=== PATIENT | male | born 1965 | race Caucasian/White ===

== ENCOUNTER 2016-09-27 10:56 | Observation (INO) | payer BC, OTHER ==
[2016-09-27] MEDS ORDERED: SODIUM CHLORIDE 0.9% 500 ML IV STA (11:13)
[2016-09-27] MEDS ORDERED: SODIUM CHLORIDE 0.9% 1,000 ML IV STA (11:13)
[2016-09-27] MEDS ORDERED: NITROGLYCERIN OINT 1 INCH/GM PACKET TOPICAL STA (11:13)
[2016-09-27] MEDS ORDERED: ASPIRIN 81 MG CHEW PO STA (11:14)
--- NOTE | 2016-09-27 11:20 | ED ---
Chest Pain HPI - General Chief Complaint: Chest Pain Stated Complaint: CHEST PAIN, CARDIAC HX Time Seen by Provider: 09/27/16 11:00 Source: patient, family, RN notes reviewed, old records reviewed Mode of arrival: wheelchair Limitations: no limitations - History of Present Illness Initial Comments: This is a 50-year-old male with a history of heart disease who states he was working on his garage prior to admission when he started developing some chest pain with shortness of breath about half hour prior to admission. He states pain was about 4/10 in severity he did take nitroglycerin and got better but then started coming back to bed. He is here for evaluation. He has no cough phlegm production fevers chills or sweats. He states the pain was sharp and midsternal. He denies any history of blood clots. No recent colds flu symptoms. No heavy lifting. MD Complaint: chest pain, other - Related Data Home Medications Medication Instructions Recorded Confirmed ALPRAZolam 0.25 mg PO BID PRN 08/25/14 09/27/16 Aspirin 162 mg PO HS 08/25/14 09/27/16 [id number] 2 tab PO HS 08/25/14 09/27/16 [Excedrin] Atorvastatin [Lipitor] 80 mg PO HS 08/25/14 09/27/16 Clopidogrel Bisulfate [Clopidogrel] 75 mg PO HS 08/25/14 09/27/16 Metoprolol Tartrate [Lopressor] 25 mg PO HS 08/25/14 09/27/16 Naproxen [Naprosyn] 500 mg PO BID PRN 08/25/14 09/27/16 Omeprazole 20 mg PO HS 08/25/14 09/27/16 SUMAtriptan SUCCINATE [Imitrex] 100 mg PO HS PRN 01/19/16 09/27/16 Nitroglycerin Sl Tabs [Nitrostat] 0.4 mg SUBLINGUAL Q5M PRN 09/27/16 09/27/16 Allergies Allergy/AdvReac Type Severity Reaction Status Date / Time No Known Allergies Allergy Verified 09/27/16 11:02 Review of Systems ROS Statement: Those systems with pertinent positive or pertinent negative responses have been documented in the HPI. ROS Other: All systems not noted in ROS Statement are negative. EKG Findings - EKG Results: EKG: interpreted by LEEANN, sinus rhythm (Sinus rhythm with a rate is 81. Interval 148 QRS duration 86 daily since QTC of 362/[address]-T wave changes. This is compared with an EKG dated 01/30/16 which shows a very similar configuration.) Past Medical History Past Medical History: GERD/Reflux, Myocardial Infarction ([place]) Additional Past Medical History / Comment(s): Restless leg syndrome, migraines. [place] x3. Last Myocardial Infarction Date:: 2013 History of Any Multi-Drug Resistant Organisms: None Reported Past Surgical History: Appendectomy, Back Surgery, Heart Catheterization With Stent, Hernia Repair Additional Past Surgical History / Comment(s): Surgery for ruptured disc lower back. Has 3 heart stents. Past Anesthesia/Blood Transfusion Reactions: Previous Problems w/ Anesthesia Additional Past Anesthesia/Blood Transfusion Reaction / Comment(s): Has some anxiety, thai. with spinal anesthesia. Date of Last Stent Placement:: 2013 Past Psychological History: Anxiety Smoking Status: Current every day smoker Past Alcohol Use History: None Reported Additional Past Alcohol Use History / Comment(s): Smokes 2 PPD x 28 yrs. Past Drug Use History: None Reported - Past Family History Mother Family Medical History: Cancer Additional Family Medical History / Comment(s): Leukemia Father Family Medical History: Cancer Additional Family Medical History / Comment(s): Skin General Exam - General Exam Comments Initial Comments: This is a well-developed well-nourished awake alert oriented 3 male Limitations: no limitations General appearance: alert, in no apparent distress Head exam: Present: atraumatic, normocephalic, normal inspection Eye exam: Present: normal appearance, PERRL, EOMI. Absent: scleral icterus, conjunctival injection, periorbital swelling ENT exam: Present: normal exam, mucous membranes moist Neck exam: Present: normal inspection. Absent: tenderness, meningismus, lymphadenopathy Respiratory exam: Present: normal lung sounds bilaterally. Absent: respiratory distress, wheezes, rales, rhonchi, stridor Cardiovascular Exam: Present: regular rate, normal rhythm, normal heart sounds. Absent: systolic murmur, diastolic murmur, rubs, gallop, clicks GI/Abdominal exam: Present: soft, normal bowel sounds. Absent: distended, tenderness, guarding, rebound, rigid Extremities exam: Present: normal inspection, full ROM, normal capillary refill. Absent: tenderness, pedal edema, joint swelling, calf tenderness Back exam: Present: normal inspection Neurological exam: Present: alert, oriented X3, CN II-XII intact Psychiatric exam: Present: normal affect, normal mood Skin exam: Present: warm, dry, intact, normal color. Absent: rash Course Vital Signs 09/27/16 09/27/16 09/27/16 10:57 11:18 12:17 Temperature 97.2 F L Pulse Rate 87 74 69 Respiratory 18 16 15 Rate Blood Pressure 125/56 106/60 95/53 O2 Sat by Pulse 95 98 96 Oximetry 09/27/16 13:47 Temperature 97.1 F L Pulse Rate 62 Respiratory 16 Rate Blood Pressure 98/52 O2 Sat by Pulse 97 Oximetry - Reevaluation(s) Reevaluation #1: 09/27/16 11:19 I did review the cath report from 08/26/14 as well as a CAT scan of the chest which was performed 01/31/16 Reevaluation #2: 09/27/16 13:45 Reevaluation the patient reveals no further chest pain. Chest Pain MDM - MDM Imaging study shows no acute findings. Patient is pain-free at this time he will be admitted for evaluation for chest pain. Critical Care Time Critical Care Time: Yes Critical Care Time: 31 minutes which includes initial presentation with history physical lab work x- rays and evaluation of the same. Multiple re-evaluations to evaluate responsive therapy. Discussion with the patient and his family. Discussion with the admitting physician. Evaluation of old charting. Documentation the above and admission orders. Disposition Clinical Impression: Unstable angina pectoris, Chest pain Disposition: ADMITTED IP TO THIS [facility] Condition: Stable
[2016-09-27 11:28] LABS: Basophils # (A) 0.1 k/uL (0-0.2); Basophils % (A) 0 %; CHCM 33.8; Eosinophils # (A) 0.2 k/uL (0-0.7); Eosinophils % (A) 1 %; HCT 40.1 % (39.0-53.0); HDW 2.64; HGB 13.2 gm/dL (13.0-17.5); Luc # (Auto) 0.12; Luc % (Auto) 1; Lymphocytes # (A) 2.9 k/uL (1.0-4.8); Lymphocytes % (A) 18 %; MCH 30.5 pg (25.0-35.0); MCV 92.3 fL (80.0-100.0); Mean Platelet Volume 7.3; Monocytes # (A) 0.5 k/uL (0-1.0); Monocytes % (A) 3 %; Neutrophils # (A) 12.7 k/uL (1.3-7.7); Neutrophils % (A) 77 %; RBC 4.34 m/uL (4.30-5.90); RDW 14.1 % (11.5-15.5); WBC 16.5 k/uL (3.8-10.6)
[2016-09-27 11:38] LABS: ALT 39 U/L (21-72); AST 24 U/L (17-59); Alkaline Phosphatase 103 U/L (38-126); Anion Gap 9 mmol/L; Blood Urea Nitrogen 22 mg/dL (9-20); Calcium 9.3 mg/dL (8.4-10.2); Carbon Dioxide 20 mmol/L (22-30); Chloride 110 mmol/L (98-107); Glucose 100 mg/dL (74-99); Non-African American GFR(MDRD) >60 (>60 ml/min/1.73 sqM); Potassium 4.3 mmol/L (3.5-5.1); Sodium 139 mmol/L (137-145); Total Bilirubin 0.2 mg/dL (0.2-1.3); Total Protein 6.7 g/dL (6.3-8.2)
[2016-09-27 11:57] LABS: Creatine Kinase 218 U/L (55-170); Partial Thromboplastin Time 25.4 sec (22.0-30.0); Prothrombin Time 10.4 sec (9.0-12.0)
[2016-09-27 12:10] LABS: Creatine Kinase MB 1.1 ng/mL (0.0-2.4); Troponin I <0.012 ng/mL (0.000-0.034)
--- NOTE | 2016-09-27 12:23 | XR ---
EXAMINATION TYPE: XR chest 2V DATE OF EXAM: 09/27/2016 12:14 PM COMPARISON: Prior chest x-ray December HISTORY: Chest pain TECHNIQUE: Frontal and lateral views of the chest are obtained. FINDINGS: There is no focal air space opacity, pleural effusion, or pneumothorax seen. The cardiac silhouette size is within normal limits. There are overlying cardiac leads. The osseous structures are intact. IMPRESSION: No acute cardiopulmonary process.
[2016-09-27] MEDS ORDERED: NITROGLYCERIN SL TABS 0.4 MG TAB SUBLINGUAL PRN (13:56)
[2016-09-27] MEDS ORDERED: SODIUM CHLORIDE 0.9% 1,000 ML IV SCH (14:00)
[2016-09-27] MEDS ORDERED: SUMAtriptan SUCCINATE 50 MG TAB PO PRN (14:15)
[2016-09-27] MEDS ORDERED: ACETAMINOPHEN TAB 325 MG TAB PO PRN (14:40)
[2016-09-27 15:26] VITALS: RESP 18
[2016-09-27] MEDS: NICOTINE 14MG/24HR PATCH TRANSDERM SCH (16:27)
[2016-09-27] MEDS: NITROGLYCERIN OINT 1 INCH/GM PACKET TOPICAL SCH (18:00)
[2016-09-27 18:30] LABS: Creatine Kinase 177 U/L (55-170)
[2016-09-27 18:43] LABS: Creatine Kinase MB 0.9 ng/mL (0.0-2.4); Troponin I <0.012 ng/mL (0.000-0.034)
[2016-09-27] MEDS ORDERED: CALCIUM CARBONATE 500 MG CHEWABLE PO PRN (20:10)
[2016-09-27] MEDS ORDERED: CITALOPRAM HYDROBROMIDE 20 MG TAB PO SCH ×2 (21:00)
[2016-09-27] MEDS ORDERED: ATORVASTATIN 80 MG TAB PO SCH (21:00)
[2016-09-27] MEDS ORDERED: PRAMIPEXOLE 0.25 MG TAB PO SCH (21:00)
[2016-09-27] MEDS ORDERED: CLOPIDOGREL 75 MG TAB PO SCH (21:00)
[2016-09-27] MEDS ORDERED: NAPROXEN 250 MG TAB PO PRN (21:00)
[2016-09-27] MEDS ORDERED: ASPIRIN-ACET-CAFF 250-250-65MG 1 EACH TAB PO SCH (21:00)
[2016-09-27] MEDS ORDERED: METOPROLOL TARTRATE 25 MG TAB PO SCH (21:00)
[2016-09-27] MEDS ORDERED: LISINOPRIL 20 MG TAB PO SCH (21:00)
--- NOTE | 2016-09-27 22:21 | HP ---
DATE OF ADMISSION: 09/27/2016 This 50 -year-old gentleman with history of coronary artery disease with previous cardiac catheterization and stent placement three times in the past, ( ) retrosternal chest pain started today, ( ) lasting for half an hour. Retrosternal area, sharp in nature, not radiating, 4/10 in severity, relieved with nitroglycerine. After half an hour, started having chest pain again. Came to the ER. Relieved again with nitroglycerine. The patient was complaining of some shortness of breath. Denied any lightheadedness. Denied any acute diaphoresis. Chest pain is nonpleuritic in nature, not associated with food and the patient ( ) chest pains are similar to the chest pain he had when he had myocardial infarction. The patient follows with Dr. Chairez as an outpatient. Patient continues to smoke and continues to smoke 2 packs per day. Works as a haul truck driver. Patient did not have cough, fever or chills. Patient chest x-ray did not show any significant pneumonic process and patient chest pain is nonpleuritic in nature. Nonexertional in nature. REVIEW OF SYSTEMS: CONSTITUTIONAL: No fever, no malaise, no fatigue. HEENT: No recent visual problems or hearing problems. Denied any sore throat. CARDIOVASCULAR: As described in history of present illness. PULMONARY: No shortness of breath, no cough, no hemoptysis. GASTROINTESTINAL: No diarrhea, no nausea, no vomiting, no abdominal pain. Normoactive bowel sounds. NEUROLOGICAL: No headaches, no weakness, no numbness. HEMATOLOGICAL: Denies any bleeding or petechiae. GENITOURINARY: Denies any burning micturition, frequency, or urgency. MUSCULOSKELETAL/RHEUMATOLOGICAL: Denies any joint pain, swelling, or any muscle pain. ENDOCRINE: Denies any polyuria or polydipsia. The rest of the 14 point review of systems is negative. HOME MEDICATIONS INCLUDE: 1. Alprazolam. 2. Aspirin. 3. Fioricet. 4. Atorvastatin. 5. Plavix. 6. Metoprolol. 7. Naproxen. 8. Omeprazole. 9. Sumitriptan. 10. Nitroglycerine sublingual. ALLERGIES: No known drug allergies. PAST MEDICAL HISTORY: Significant for gastroesophageal reflux disease, myocardial infarction in the past, migraine in the past. Restless leg syndrome, appendectomy, back surgery, cardiac catheterization and stent placement three times in the past. Patient continues to smoke 2 packs per day. Denied any alcohol abuse or any drug abuse. Family history: Mother had ( ). Father had skin cancer. PHYSICAL EXAMINATION: VITAL SIGNS: Temperature 97.2, pulse of 87, respiratory rate of 18, blood pressure is 95/53 because of the Nitro patch he has, saturating at 96% on room air. GENERAL: The patient is alert and oriented x3, not in any acute distress. Well developed, well nourished. HEENT: Pupils are round and equally reacting to light. EOMI. No scleral icterus. No conjunctival pallor. Normocephalic, atraumatic. No pharyngeal erythema. No thyromegaly. CARDIOVASCULAR: S1 and S2 present. No murmurs, rubs, or gallops. PULMONARY: Chest is clear to auscultation, no wheezing or crackles. ABDOMEN: Soft, nontender, nondistended, normoactive bowel sounds. No palpable organomegaly. MUSCULOSKELETAL: No joint swelling or deformity. EXTREMITIES: No cyanosis, clubbing, or pedal edema. NEUROLOGICAL: Gross neurological examination did not reveal any focal deficits. SKIN: No rashes. LABORATORY DATA: CBC, CMP, essentially within normal limits. EKG did not show any acute ST-T wave changes. Patient has been compliant with his medications. Chest x-ray essentially within normal limits. ASSESSMENT AND PLAN: 1. Chest pain, appears to be atypical in nature. Patient needs to be ruled out acute coronary artery syndrome. Because of the ( ) chest pain and ( ) factors including continued smoking. Patient may actually need a stress test, the decision will be left up to cardiology. Cardiology will evaluate the patient tomorrow morning. I will repeat two more sets of troponins and EKGs. 2. Restless leg syndrome. 3. History of coronary artery disease in the past. 4. Gastroesophageal reflux disease. 5. Migraines. For the above mentioned chronic medical problems, I will go ahead and continue his home medications, ( ) regarding nicotine cessation is provided.
[2016-09-27 23:43] LABS: Creatine Kinase 156 U/L (55-170)
[2016-09-27] MEDS ORDERED: MAG HYDROX/AL HYDROX/SIMETH 30 ML CUP PO PRN (23:45)
[2016-09-27] MEDS ORDERED: METOCLOPRAMIDE 5 MG/ML 2 ML VIAL IVP PRN (23:46)
[2016-09-27 23:56] LABS: Creatine Kinase MB 0.8 ng/mL (0.0-2.4); Troponin I <0.012 ng/mL (0.000-0.034)
[2016-09-28] MEDS: ALPRAZolam 0.25 MG TAB PO PRN ×2 (00:42→14:44)
[2016-09-28] MEDS: NITROGLYCERIN OINT 1 INCH/GM PACKET TOPICAL SCH ×3 (01:41→12:17)
[2016-09-28 04:06] LABS: Cholesterol 196 mg/dL (<200); HDL Cholesterol 32 mg/dL (40-60); Triglycerides 355 mg/dL (<150)
[2016-09-28 07:51] VITALS: PULSE 54; TEMP 97.6
--- NOTE | 2016-09-28 08:36 | P.CRDCN ---
History of Present Illness Consult date: 09/28/16 Chief complaint: Chest pain History of present illness: This is a pleasant 50-year-old gentleman with a past medical history significant for CAD and prior stenting of the proximal LAD and first diagonal branch as well as hypertension and dyslipidemia and significant history of smoking presented to the emergency room complaining of chest discomfort. He was in his usual state of health yesterday when he was sitting home and started experiencing sharp chest discomfort with radiation to the neck. No associated symptoms of shortness of breath, dizziness or lightheadedness, nausea or vomiting or sweating. The EKG showed sinus mechanism with nonspecific changes in the inferior leads. The cardiac enzymes came in to be unremarkable. I recommended proceeding with a coronary angiogram in view of the concerning symptoms and mildly abnormal EKG. The patient would like to go home and have a stress test done as an outpatient. I recommended getting the patient up and around and based on his symptoms will decide what the next step will be. Past Medical History Past Medical History: Coronary Artery Disease (CAD), Chest Pain / Angina, GERD/ Reflux, Hyperlipidemia, Myocardial Infarction ([place]), Pneumonia, Vascular Disorder Additional Past Medical History / Comment(s): Restless leg syndrome, migraines, PAD, [place] x2, back pain, peptic ulcer dx, nephrolithiasis, bronchitis, sinus problems. Last Myocardial Infarction Date:: 2013 History of Any Multi-Drug Resistant Organisms: None Reported Past Surgical History: Appendectomy, Back Surgery, Cholecystectomy, Heart Catheterization With Stent, Hernia Repair Additional Past Surgical History / Comment(s): Surgery for ruptured disc lower back. Has 3 heart stents. Past Anesthesia/Blood Transfusion Reactions: Previous Problems w/ Anesthesia Additional Past Anesthesia/Blood Transfusion Reaction / Comment(s): Has some anxiety, thai. with spinal anesthesia. Date of Last Stent Placement:: 2013 Past Psychological History: Anxiety Additional Psychological History / Comment(s): Pt resides with his spouse and 3 adult children. He is independent. He drives. He is a flatbed truck driver. Smoking Status: Current every day smoker Past Alcohol Use History: Occasional Additional Past Alcohol Use History / Comment(s): Smokes 2 PPD. Started smoking in 1987. Past Drug Use History: None Reported - Past Family History Mother Family Medical History: Cancer Additional Family Medical History / Comment(s): Mother in her 60's from leukemia Father Family Medical History: Cancer, COPD Additional Family Medical History / Comment(s): Skin cancer. Father at the age of 73 yrs from burn injuries. Medications and Allergies Home Medications Medication Instructions Recorded Confirmed Type ALPRAZolam 0.25 mg PO BID PRN 08/25/14 09/27/16 History Aspirin 162 mg PO HS 08/25/14 09/27/16 History [id number] 2 tab PO HS 08/25/14 09/27/16 History [Excedrin] Atorvastatin [Lipitor] 80 mg PO HS 08/25/14 09/27/16 History Clopidogrel Bisulfate [Clopidogrel] 75 mg PO HS 08/25/14 09/27/16 History Metoprolol Tartrate [Lopressor] 25 mg PO HS 08/25/14 09/27/16 History Naproxen [Naprosyn] 500 mg PO BID PRN 08/25/14 09/27/16 History Omeprazole 20 mg PO HS 08/25/14 09/27/16 History SUMAtriptan SUCCINATE [Imitrex] 100 mg PO HS PRN 01/19/16 09/27/16 History Citalopram Hydrobromide [CeleXA] 40 mg PO HS 09/27/16 09/27/16 History Lisinopril [Zestril] 20 mg PO HS 09/27/16 09/27/16 History Nitroglycerin Sl Tabs [Nitrostat] 0.4 mg SUBLINGUAL Q5M PRN 09/27/16 09/27/16 History Pramipexole [Mirapex] 0.25 mg PO HS 09/27/16 09/27/16 History Allergies Allergy/AdvReac Type Severity Reaction Status Date / Time No Known Allergies Allergy Verified 09/27/16 11:02 Physical Exam Vitals: Vital Signs Temp Pulse Pulse Resp BP BP Pulse Ox 09/28/16 08:00 54 L 18 09/28/16 07:55 96 09/28/16 07:49 97.6 F 54 L 18 97/55 96 09/28/16 04:00 97.9 F 51 L 18 90/59 95 09/27/16 23:47 18 09/27/16 23:46 61 18 106/64 95 09/27/16 20:00 18 09/27/16 19:52 97.9 F 68 18 111/55 96 09/27/16 18:23 18 09/27/16 15:24 93.5 F L 69 18 107/64 96 09/27/16 14:50 18 09/27/16 14:36 97.2 F L 65 16 100/56 97 Intake and Output 09/27/16 09/28/16 09/28/16 22:59 06:59 14:59 Intake Total 600 Balance 600 Intake: Oral 600 Other: Voiding Method Toilet Toilet Toilet # Voids 1 1 Weight 93.5 kg - Constitutional General appearance: no acute distress - Respiratory Respiratory: bilateral: CTA - Cardiovascular Rhythm: regular Heart sounds: normal: S1, S2 Results 09/27/16 11:10 09/27/16 11:10 Cardiac Enzymes 09/27/16 09/27/16 Range/Units 17:19 22:57 CK-MB (CK-2) 0.9 0.8 (0.0-2.4) ng/mL Troponin I <0.012 <0.012 (0.000-0.034) ng/mL Current Medications Generic Name Dose Route Start Last Admin Trade Name Freq PRN Reason Stop Dose Admin Acetaminophen 650 mg 09/27/16 14:40 Tylenol Tab PO Q6HR PRN Fever and/ or Pain Acetaminophen/Aspirin/Caffeine 2 each 09/27/16 21:00 09/27/16 17:41 Excedrin PO 2 each HS IKE Administration Al Hydroxide/Mg Hydroxide 30 ml 09/27/16 23:45 09/28/16 00:13 Maalox PO 30 ml Q4HR PRN Administration GI Upset Alprazolam 0.25 mg 09/27/16 13:57 09/28/16 00:42 Xanax PO 0.25 mg BID PRN Administration Anxiety Aspirin 325 mg 09/28/16 09:00 Aspirin PO DAILY IKE Atorvastatin Calcium 80 mg 09/27/16 21:00 09/27/16 21:04 Lipitor PO 80 mg HS IKE Administration Calcium Carbonate/Glycine 1,000 mg 09/27/16 20:10 09/27/16 21:06 Tums PO 1,000 mg QID PRN Administration Heartburn Citalopram Hydrobromide 40 mg 09/27/16 21:00 09/27/16 21:05 Celexa PO 40 mg HS IKE Administration Clopidogrel Bisulfate 75 mg 09/27/16 21:00 09/27/16 21:05 Plavix PO 75 mg HS IKE Administration Sodium Chloride 1,000 mls @ 20 mls/hr 09/27/16 14:00 09/27/16 16:28 Saline 0.9% IV Not Given .Q24H IKE Lisinopril 20 mg 09/27/16 21:00 09/27/16 21:04 Zestril PO 20 mg HS IKE Administration Metoclopramide HCl 5 mg 09/27/16 23:46 09/28/16 00:13 Reglan IVP 5 mg Q6HR PRN Administration Nausea And Vomiting Metoprolol Tartrate 25 mg 09/27/16 21:00 09/27/16 21:05 Lopressor PO 25 mg HS IKE Administration Naproxen 500 mg 09/27/16 21:00 09/28/16 00:41 Naprosyn PO 500 mg BID PRN Administration Pain Nicotine 1 patch 09/27/16 16:00 09/27/16 16:27 Habitrol 14mg/24hr Patch TRANSDERM 1 patch DAILY [facility] Administration Nitroglycerin 1 inch 09/27/16 18:00 09/28/16 05:28 Nitro-Bid Oint TOPICAL Not Given Q6HR [facility] Nitroglycerin 0.4 mg 09/27/16 13:56 Nitrostat SUBLINGUAL Q5M PRN Chest Pain Pantoprazole Sodium 40 mg 09/28/16 21:00 Protonix PO HS IKE Pramipexole Dihydrochloride 0.25 mg 09/27/16 21:00 09/27/16 21:04 Mirapex PO 0.25 mg HS IKE Administration Sumatriptan Succinate 100 mg 09/27/16 14:15 09/27/16 21:05 Imitrex PO 100 mg HS PRN Administration Migraine Headache Intake and Output 09/27/16 09/28/16 09/28/16 22:59 06:59 14:59 Intake Total 600 Balance 600 Intake: Oral 600 Other: Voiding Method Toilet Toilet Toilet # Voids 1 1 Weight 93.5 kg Assessment and Plan Plan: Assessment #1 when episode of chest discomfort #2 known CAD with prior angioplasty and stenting #3 multiple comorbid conditions Plan #1 I recommended proceeding with a coronary angiogram but the patient does not want to #2 I will ambulate the patient and assess the patient again.
[2016-09-28] MEDS ORDERED: ASPIRIN 325 MG TAB PO SCH (09:00)
[2016-09-28] MEDS: NICOTINE 14MG/24HR PATCH TRANSDERM SCH (09:38)
[2016-09-28 12:16] VITALS: BP 106/64
[2016-09-28] MEDS ORDERED: PANTOPRAZOLE 40 MG TABLET PO SCH (21:00)
--- NOTE | 2016-09-29 14:55 | DS ---
DATE OF ADMISSION: 09/27/2016 DATE OF DISCHARGE: 09/28/2016 Patient with coronary artery disease, admitted, came in with chest pain. Patient will need at least a stress test or cardiac catheterization. Patient declined cardiac cath and wanted to get an outpatient stress test. Patient is recommended to be discharged home to come back for outpatient stress test as per Cardiology. Patient was seen and examined on the day of discharge. Please refer to my dictation from yesterday for further details of admission diagnosis and rest of the diagnoses. DISCHARGE DIET: Cardiac. Activity as tolerated. Follow with Dr. Akil Tariq in 3 to 7 days; follow up with Dr. Chairez on scan 10/03/2016.
== END 2016-09-28 15:10 | disposition home or self-care (01) ==
LOC: EC 10:56 → 3OBS 13:58
PROVIDERS: ADMIT Internal Medicine; ATTEND Internal Medicine
DX: R07.89 Other chest pain (principal); G25.81 Restless legs syndrome; I10 Essential (primary) hypertension; E78.5 Hyperlipidemia, unspecified; I25.10 Atherosclerotic heart disease of native coronary artery without angina pectoris; K21.9 Gastro-esophageal reflux disease without esophagitis; G43.909 Migraine, unspecified, not intractable, without status migrainosus; F41.9 Anxiety disorder, unspecified; I25.2 Old myocardial infarction; F17.200 Nicotine dependence, unspecified, uncomplicated; Z95.5 Presence of coronary angioplasty implant and graft; Z79.82 Long term (current) use of aspirin; Z79.899 Other long term (current) drug therapy; Z80.6 Family history of leukemia; Z80.8 Family history of malignant neoplasm of other organs or systems; Z82.5 Family history of asthma and other chronic lower respiratory diseases
CPT/HCPCS: 99291; 96361 ×3; 36415; 94760; 93005; 85379; 83880; 80061; 80053; 82550; 82553; 83735; 84484; 85025; 85610; 85730; 71020; G0378 ×2; S4990 ×2; J2765; 96374

== ENCOUNTER → 2016-10-22 | Outpatient (CLI) | payer OTHER ==
[2016-10-22 14:34] LABS: CH 30.9; CHCM 33.3; HCT 40.8 % (39.0-53.0); HDW 2.62; HGB 13.4 gm/dL (13.0-17.5); MCH 30.6 pg (25.0-35.0); MCHC 32.7 g/dL (31.0-37.0); MCV 93.4 fL (80.0-100.0); Mean Platelet Volume 7.3; RBC 4.37 m/uL (4.30-5.90); RDW 14.5 % (11.5-15.5); WBC 12.5 k/uL (3.8-10.6)
[2016-10-22 14:52] LABS: Anion Gap 11 mmol/L; Blood Urea Nitrogen 21 mg/dL (9-20); Carbon Dioxide 23 mmol/L (22-30); Chloride 106 mmol/L (98-107); Non-African American GFR(MDRD) >60 (>60 ml/min/1.73 sqM); Potassium 4.9 mmol/L (3.5-5.1); Sodium 140 mmol/L (137-145)
== END | disposition home or self-care (01) ==
LOC: LABPAT 14:02
PROVIDERS: ATTEND Internal Medicine Interventional Cardiology
DX: Z01.812 Encounter for preprocedural laboratory examination (principal); I25.10 Atherosclerotic heart disease of native coronary artery without angina pectoris
CPT/HCPCS: 80051; 82565; 84520; 85027

== ENCOUNTER 2016-10-25 11:18 | Day surgery (SDC) | payer OTHER ==
[2016-10-24 09:11] VITALS: BMI 31.7
[~2016-10-25 11:18] MED LIST: ALPRAZolam 0.25 MG TAB PO PRN; ASPIRIN 325 MG TAB PO STA; ATORVASTATIN 80 MG TAB PO STA; SODIUM CHLORIDE 0.9% 1,000 ML in EMPTY BAG 1 BAG IV ONE
[2016-10-25] MEDS ORDERED: SODIUM CHLORIDE 0.9% 1,000 ML IV ONE (11:40)
[2016-10-25 11:49] VITALS: TEMP 97.9
[2016-10-25] MEDS ORDERED: HEPARIN SODIUM 1,000 UNIT/ML VIAL ONE (12:08)
[2016-10-25] MEDS ORDERED: diphenhydrAMINE 50 MG/ML 1 ML VIAL ONE (12:08)
[2016-10-25] MEDS ORDERED: MIDAZOLAM 2 MG/2 ML VIAL ONE (12:08)
[2016-10-25] MEDS ORDERED: LIDOCAINE 2% INJ 20 MG/ML (20 ML MDV) ONE (12:08)
[2016-10-25] MEDS ORDERED: VERAPAMIL 2.5 MG/ML 2 ML AMP ONE (12:08)
[2016-10-25] MEDS ORDERED: SODIUM CHLORIDE 0.9% (PF) 10 ML VIAL ONE (12:08)
[2016-10-25] MEDS ORDERED: diphenhydrAMINE 50 MG/ML 1 ML VIAL IVP ONE (12:35)
[2016-10-25] MEDS ORDERED: MIDAZOLAM 2 MG/2 ML VIAL IV ONE (12:37)
[2016-10-25] MEDS ORDERED: LIDOCAINE 2% INJ 20 MG/ML SQ ONE (12:38)
[2016-10-25] MEDS: VERAPAMIL SYRINGE (5 MG/10 ML) INTRAARTER ONE ×2 (12:48→12:58)
[2016-10-25] MEDS ORDERED: IOHEXOL 350 MG/ML 100 ML BOTTLE INJ ONE (12:57)
[2016-10-25] MEDS ORDERED: RX INFO: IV CONTRAST WAS GIVEN 1 EACH MISC MISCELLANE PRN (13:06)
[2016-10-25] MEDS ORDERED: SODIUM CHLORIDE 0.9% 1,000 ML IV SCH (13:15)
[2016-10-25 14:58] VITALS: RESP 16
[2016-10-25 16:59] VITALS: BP 104/56; PULSE 72
--- NOTE | 2016-10-25 21:36 | LTR ---
October 25, 2016 RE: Hitesh Zamora Dear Dr. Tariq: Mr. Hitesh Zamora underwent a heart catheterization which showed patent stents in the RCA, left circumflex and LAD. Thank you for allowing me to participate in his care and please do not hesitate to call if you have any question or concerns. Sincerely, NESTOR BARNES MD
--- NOTE | 2016-10-25 21:44 | CC ---
DATE OF SERVICE: 10/25/2016 PERFORMING PHYSICIAN: Bobby Chairez M.D., air bag buffer. PROCEDURE PERFORMED: Selective right and left coronary angiogram. INDICATION: This is a pleasant 50-year-old gentleman with known CAD and prior stenting of the RCA, left circumflex and LAD. He was experiencing chest discomfort and he underwent myocardial perfusion imaging stress test which showed ischemia involving the inferior wall of the left ventricle. He was admitted to undergo a heart catheterization. APPROACH: Right radial artery. COMPLICATIONS: None. LEVEL OF SEDATION: Moderate. PROCEDURE DESCRIPTION: After obtaining informed consent, the patient was brought to the cardiac ship laborer. The right radial artery was cannulated using micropuncture technique. The micropuncture wire passed easily. Then I placed ( ) [place] sheath in the right radial artery. ( ) selective right and left coronary angiogram using JR4 and JL3.5 catheters. The procedure was completed without any complication. SELECTIVE CORONARY ANGIOGRAM: 1. The right coronary artery is a large-caliber vessel and it is a dominant vessel. The proximal RCA appeared to have a lesion in the range of 40%. The mid RCA is stented and the stent is patent. The RCA distally appeared to be normal. It bifurcates into PDA and PLV branches; both are angiographically normal. 2. The left main is a large-caliber vessel, angiographically normal. It bifurcates into the left circumflex, ramus intermedius and left anterior descending artery. 3. The left circumflex is a large-caliber vessel. It is a codominant vessel. The proximal circumflex appeared to be stented and the stent is patent. The mid circumflex appeared to be normal and gives rise to the first and second obtuse marginal branches; both appeared to be angiographically normally. The circumflex distally bifurcates into PDA and PLV branches. Both have mild disease only. 4. The ramus intermedius is a small- to medium-caliber vessel with mild disease only. 5. Left anterior descending artery. The proximal LAD is stented and the stent is patent. The proximal LAD gives rise to a first diagonal which appeared to be angiographically. The mid LAD and distal LAD appeared to be angiographically normal. CONCLUSION: 1. Patent stents in the RCA, left circumflex and LAD. 2. Intermediate de sveta coronary artery disease involving the RCA proximal to the stent. Post-procedure management will be medical treatment.
== END 2016-10-25 19:26 | disposition home or self-care (01) ==
LOC: CATHCVL 11:18 → 3OBS 12:59 → CATHCVL 19:26
PROVIDERS: ATTEND Internal Medicine Interventional Cardiology
DX: I25.110 Atherosclerotic heart disease of native coronary artery with unstable angina pectoris (principal); Z95.5 Presence of coronary angioplasty implant and graft; R94.39 Abnormal result of other cardiovascular function study; I10 Essential (primary) hypertension; E78.5 Hyperlipidemia, unspecified; F17.210 Nicotine dependence, cigarettes, uncomplicated; Z79.82 Long term (current) use of aspirin; Z79.899 Other long term (current) drug therapy; Z82.49 Family history of ischemic heart disease and other diseases of the circulatory system
CPT/HCPCS: 93454; 99156; C1894; C1769; J2001; J2250; J1200; Q9967; J1644

== ENCOUNTER 2019-02-05 23:00 | Emergency (ER) | payer BC, OTHER ==
[2019-02-05 23:06] VITALS: BP 121/75; PULSE 77; RESP 20; TEMP 98
[2019-02-05] MEDS ORDERED: IBUPROFEN 800 MG TAB PO STA (23:20)
[2019-02-05] MEDS ORDERED: ACETAMINOPHEN TAB 500 MG TAB PO STA (23:20)
--- NOTE | 2019-02-05 23:28 | ED ---
General Adult HPI - General Chief complaint: Urogenital Stated complaint: Hernia Time Seen by Provider: 02/05/19 23:10 Source: patient Mode of arrival: ambulatory Limitations: no limitations - History of Present Illness Initial comments: Patient is a 53-year-old male who presents with a chief complaint of left-sided groin pain. This been going on for about 3 weeks however acutely worse starting a few hours ago if the patient sneezed. Patient states that he thinks that he has an inguinal hernia. Patient states that his pain is sharp, it is aggravated by certain movements, lifting, coughing and sneezing. Leading factors are rest. Patient is not tried taking any medications for this. He has not followed up with primary care general surgery yet. He denies fever, chills, chest pain, shortness of breath, abdominal pain, nausea or vomiting, as is his having normal bowel movements. - Related Data Home Medications Medication Instructions Recorded Confirmed ALPRAZolam 0.25 mg PO BID PRN 08/25/14 02/05/19 Aspirin 162 mg PO HS 08/25/14 02/05/19 [id number] 2 tab PO HS PRN 08/25/14 02/05/19 [Excedrin] Atorvastatin [Lipitor] 80 mg PO HS 08/25/14 02/05/19 Metoprolol Tartrate [Lopressor] 25 mg PO HS 08/25/14 02/05/19 Naproxen [Naprosyn] 500 mg PO BID PRN 08/25/14 02/05/19 Omeprazole 20 mg PO HS 08/25/14 02/05/19 Citalopram Hydrobromide [CeleXA] 40 mg PO HS 09/27/16 02/05/19 Lisinopril [Zestril] 20 mg PO HS 09/27/16 02/05/19 Nitroglycerin Sl Tabs [Nitrostat] 0.4 mg SUBLINGUAL Q5M PRN 09/27/16 02/05/19 Pramipexole [Mirapex] 0.25 mg PO HS 09/27/16 02/05/19 Previous Rx's Medication Instructions Recorded Ipratropium-Albuterol Nebulize 3 ml INHALATION Q4H PRN #30 neb 09/17/17 [Duoneb 0.5 mg-3 mg/3 ml Soln] Promethaz-Cod 6.25-10 mg/5 ml 5 ml PO Q6HR PRN #100 ml 09/17/17 [Phenergan with Codeine] predniSONE 50 mg PO DAILY #5 tablet 09/17/17 Acetaminophen Tab [Tylenol Tab] 1,000 mg PO Q8H #30 tablet 02/05/19 Ibuprofen [Motrin] 800 mg PO Q8H #30 tab 02/05/19 Allergies Allergy/AdvReac Type Severity Reaction Status Date / Time No Known Allergies Allergy Verified 09/19/17 14:36 Review of Systems ROS Statement: Those systems with pertinent positive or pertinent negative responses have been documented in the HPI. ROS Other: All systems not noted in ROS Statement are negative. Genitourinary: Reports: other (Left groin pain) Past Medical History Past Medical History: Coronary Artery Disease (CAD), Chest Pain / Angina, GERD/Reflux, Hyperlipidemia, Myocardial Infarction ([place]), Pneumonia, Vascular Disorder Additional Past Medical History / Comment(s): Restless leg syndrome, migraines, PAD, [place] x2, back pain, peptic ulcer dx, nephrolithiasis, bronchitis, sinus problems. Last Myocardial Infarction Date:: 2013 History of Any Multi-Drug Resistant Organisms: None Reported Past Surgical History: Appendectomy, Back Surgery, Cholecystectomy, Heart Catheterization With Stent, Hernia Repair Additional Past Surgical History / Comment(s): Surgery for ruptured disc lower back. Has 3 heart stents. Past Anesthesia/Blood Transfusion Reactions: Previous Problems w/ Anesthesia Additional Past Anesthesia/Blood Transfusion Reaction / Comment(s): Has some anxiety, thai. with spinal anesthesia. Date of Last Stent Placement:: 2013 Past Psychological History: Anxiety Smoking Status: Current every day smoker Past Alcohol Use History: None Reported Past Drug Use History: None Reported - Past Family History Mother Family Medical History: Cancer Additional Family Medical History / Comment(s): Mother in her 60's from leukemia Father Family Medical History: Cancer, COPD Additional Family Medical History / Comment(s): Skin cancer. Father at the age of 73 yrs from burn injuries. General Exam Limitations: no limitations General appearance: alert, in no apparent distress Head exam: Present: atraumatic, normocephalic Eye exam: Present: normal appearance ENT exam: Present: normal exam Neck exam: Present: normal inspection Respiratory exam: Present: normal lung sounds bilaterally. Absent: respiratory distress, wheezes Cardiovascular Exam: Present: regular rate, normal rhythm GI/Abdominal exam: Present: soft. Absent: distended, tenderness Rectal exam: Present: deferred exam: Present: normal inspection, circumcision. Absent: testicular tenderness, urethral discharge, scrotal swelling Extremities exam: Present: normal inspection Back exam: Present: normal inspection Neurological exam: Present: alert, oriented X3, CN II-XII intact, normal gait Psychiatric exam: Present: normal affect, normal mood Skin exam: Present: warm, dry, intact Course Vital Signs 02/05/19 23:03 Temperature 98.0 F Pulse Rate 77 Respiratory 20 Rate Blood Pressure 121/75 O2 Sat by Pulse 97 Oximetry Medical Decision Making - Medical Decision Making Patient presents with chief complaint of left groin pain and concerns for a little hernia. On initial evaluation, vitals are stable, patient is noted distress. Patient rates his pain a 2 out of 10. Exam shows possibly small defect in the inguinal region. I do not appreciate any hernia or bowel peristalsis on scrotal examination. There are no overlying skin changes, cremasteric reflexes are intact. At his time, patient is instructed to use Motrin and Tylenol for pain. He was given general surgery follow-up and instructed to call and make an appointment as soon as possible. Follow up with primary care 1-2 days, return to the ED for any new or concerning symptoms arise. Disposition Clinical Impression: Inguinal hernia Disposition: HOME SELF-CARE Condition: Good Instructions (If sedation given, give patient instructions): Inguinal Hernia (ED) Additional Instructions: Take motrin 800mg and Tylenol 1,000mg in an alternating fashion every 4 hours. neither medications should be taken again sooner than 8 hours apart. follow up with general surgery as soon as possible. return to the ED if you develop fever, chills, abdominal pain, constipation, any skin changes in the area, nausea or vomiting as these may be signs of bowel strangulation. Prescriptions: Ibuprofen [Motrin] 800 mg PO Q8H #30 tab Acetaminophen Tab [Tylenol Tab] 1,000 mg PO Q8H #30 tablet Is patient prescribed a controlled substance at d/c from ED?: No Referrals: None,Stated [Primary Care Provider] - 1-2 days Simon Dee DO [Doctor of Osteopathic Medicine] - 1-2 days Warren Louise MD [Medical Doctor] - 1-2 days Ruperto Johnson MD [STAFF PHYSICIAN] - 1-2 days
== END 2019-02-05 23:52 | disposition home or self-care (01) ==
LOC: EC 23:00
DX: K40.90 Unilateral inguinal hernia, without obstruction or gangrene, not specified as recurrent (principal); I25.119 Atherosclerotic heart disease of native coronary artery with unspecified angina pectoris; K21.9 Gastro-esophageal reflux disease without esophagitis; E78.5 Hyperlipidemia, unspecified; I25.2 Old myocardial infarction; G25.81 Restless legs syndrome; F41.9 Anxiety disorder, unspecified; F17.200 Nicotine dependence, unspecified, uncomplicated; Z79.82 Long term (current) use of aspirin; Z79.899 Other long term (current) drug therapy; Z95.5 Presence of coronary angioplasty implant and graft; Z90.49 Acquired absence of other specified parts of digestive tract
CPT/HCPCS: 99283

== ENCOUNTER 2019-02-07 19:35 | Emergency (ER) | payer BC ==
[2019-02-07] MEDS ORDERED: ONDANSETRON 4 MG/2 ML VIAL IVP STA ×2 (20:07→21:57)
[2019-02-07] MEDS ORDERED: IOPAMIDOL-300 CONTRAST 30 ML VIAL (ORAL USE) PO PRN (20:07)
[2019-02-07] MEDS ORDERED: KETOROLAC 30 MG/ML 1 ML VIAL IVP STA (20:07)
[2019-02-07] MEDS ORDERED: MORPHINE SULFATE 2 MG/ML SYRINGE IVP STA (20:07)
--- NOTE | 2019-02-07 20:12 | ED ---
Abdominal Pain HPI - General Chief Complaint: Abdominal Pain Stated Complaint: Groin Pain Time Seen by Provider: 02/07/19 20:03 Source: patient Mode of arrival: ambulatory Limitations: no limitations - History of Present Illness Initial Comments: Patient is a 53-year-old male who presents with a chief complaint of left scrotal pain. I saw this patient 2 days ago in the emergency department we was diagnosed with negative all hernia. He was instructed to follow-up with primary care general surgery or to return to the emergency department symptoms worsen. Patient states he went for a motorcycle ride today and this exacerbated his symptoms. He states he now has swelling in the left scrotum. Aggravating factors, again, are movement, bending and twisting, and coughing. There are no alleviating factors. Timing is constant. - Related Data Home Medications Medication Instructions Recorded Confirmed ALPRAZolam 0.25 mg PO BID PRN 08/25/14 02/05/19 Aspirin 162 mg PO HS 08/25/14 02/05/19 [id number] [phone] 2 tab PO HS PRN 08/25/14 02/05/19 [Excedrin] Atorvastatin [Lipitor] 80 mg PO HS 08/25/14 02/05/19 Metoprolol Tartrate [Lopressor] 25 mg PO HS 08/25/14 02/05/19 Naproxen [Naprosyn] 500 mg PO BID PRN 08/25/14 02/05/19 Omeprazole 20 mg PO HS 08/25/14 02/05/19 Citalopram Hydrobromide [CeleXA] 40 mg PO HS 09/27/16 02/05/19 Lisinopril [Zestril] 20 mg PO HS 09/27/16 02/05/19 Nitroglycerin Sl Tabs [Nitrostat] 0.4 mg SUBLINGUAL Q5M PRN 09/27/16 02/05/19 Pramipexole [Mirapex] 0.25 mg PO HS 09/27/16 02/05/19 Previous Rx's Medication Instructions Recorded Ipratropium-Albuterol Nebulize 3 ml INHALATION Q4H PRN #30 neb 09/17/17 [Duoneb 0.5 mg-3 mg/3 ml Soln] Promethaz-Cod 6.25-10 mg/5 ml 5 ml PO Q6HR PRN #100 ml 09/17/17 [Phenergan with Codeine] predniSONE 50 mg PO DAILY #5 tablet 09/17/17 Acetaminophen Tab [Tylenol Tab] 1,000 mg PO Q8H #30 tablet 02/05/19 Ibuprofen [Motrin] 800 mg PO Q8H #30 tab 02/05/19 Levofloxacin [Levaquin] 500 mg PO DAILY 9 Days #9 tab 02/08/19 Allergies Allergy/AdvReac Type Severity Reaction Status Date / Time No Known Allergies Allergy Verified 02/07/19 19:55 Review of Systems ROS Statement: Those systems with pertinent positive or pertinent negative responses have been documented in the HPI. ROS Other: All systems not noted in ROS Statement are negative. Genitourinary: Reports: testicular pain Past Medical History Past Medical History: Coronary Artery Disease (CAD), Chest Pain / Angina, GERD/Reflux, Hyperlipidemia, Myocardial Infarction ([place]), Pneumonia, Vascular Disorder Additional Past Medical History / Comment(s): Restless leg syndrome, migraines, PAD, [place] x2, back pain, peptic ulcer dx, nephrolithiasis, bronchitis, sinus problems. Last Myocardial Infarction Date:: 2013 History of Any Multi-Drug Resistant Organisms: None Reported Past Surgical History: Appendectomy, Back Surgery, Cholecystectomy, Heart Catheterization With Stent, Hernia Repair Additional Past Surgical History / Comment(s): Surgery for ruptured disc lower back. Has 3 heart stents. Past Anesthesia/Blood Transfusion Reactions: Previous Problems w/ Anesthesia Additional Past Anesthesia/Blood Transfusion Reaction / Comment(s): Has some anxiety, thai. with spinal anesthesia. Date of Last Stent Placement:: 2013 Past Psychological History: Anxiety Smoking Status: Current every day smoker Past Alcohol Use History: None Reported Past Drug Use History: None Reported - Past Family History Mother Family Medical History: Cancer Additional Family Medical History / Comment(s): Mother in her 60's from leukemia Father Family Medical History: Cancer, COPD Additional Family Medical History / Comment(s): Skin cancer. Father at the age of 73 yrs from burn injuries. General Exam Limitations: no limitations General appearance: alert, in no apparent distress Head exam: Present: atraumatic, normocephalic Eye exam: Present: normal appearance ENT exam: Present: normal exam Neck exam: Present: normal inspection Respiratory exam: Present: normal lung sounds bilaterally. Absent: respiratory distress, wheezes Cardiovascular Exam: Present: regular rate, normal rhythm GI/Abdominal exam: Present: soft, tenderness (Patient has tenderness to palpation in the left inguinal region), hernia (Patient is a small hernia defect in the left hemiscrotum, the left scrotum is more swollen today than it was 2 days ago. No evidence of necrotic skin, or crepitance.). Absent: distended Rectal exam: Present: deferred exam: Present: scrotal swelling, circumcision. Absent: testicular tenderness, urethral discharge Extremities exam: Present: normal inspection Back exam: Present: normal inspection Neurological exam: Present: alert, oriented X3 Psychiatric exam: Present: normal affect, normal mood Skin exam: Present: warm, dry, intact Course Vital Signs 02/07/19 02/08/19 19:52 00:21 Temperature 98.2 F 97.6 F Pulse Rate 77 67 Respiratory 18 14 Rate Blood Pressure 116/68 98/57 O2 Sat by Pulse 99 95 Oximetry Medical Decision Making - Medical Decision Making Patient presents with chief complaint of left scrotal pain and swelling. On initial evaluation, vitals are stable, patient is in no acute distress. Patient was evaluated 2 days ago by myself and was diagnosed with an inguinal hernia. He was given general surgery follow-up, and Motrin. Patient says his symptoms are worse now after going on a motorcycle ride. At this time, patient will be evaluated with basic labs including lactic acid, urinalysis, computed tomography scan of the abdomen and pelvis with IV and oral contrast. Patient given Toradol, morphine, and Zofran. Computed tomography scan of the abdomen and pelvis show a small fat-containing inguinal hernia on the right. Ultrasound of the testicles is unremarkable except for slightly larger right testicle and prominent right epididymis. Blood evaluation shows evidence of urinary tract infection. Patient given 1 dose of Rocephin, will be discharged on Levaquin for 10 days. At this time, patient stable for discharge. He was instructed to follow up with primary care 1-2 days, return to ED if symptoms worsen or change. - Lab Data Result diagrams: 02/07/19 20:14 02/07/19 20:14 Lab Results 02/07/19 02/07/19 02/07/19 Range/Units 20:14 20:14 20:14 WBC 15.2 H (3.8-10.6) k/uL RBC 4.51 (4.30-5.90) m/uL Hgb 14.0 (13.0-17.5) gm/dL Hct 41.5 (39.0-53.0) % MCV 91.9 (80.0-100.0) fL MCH 31.0 (25.0-35.0) pg MCHC 33.7 (31.0-37.0) g/dL RDW 14.7 (11.5-15.5) % Plt Count 225 (150-450) k/uL Neutrophils % 54 % Lymphocytes % 38 % Monocytes % 5 % Eosinophils % 1 % Basophils % 1 % Neutrophils # 8.1 H (1.3-7.7) k/uL Lymphocytes # 5.7 H (1.0-4.8) k/uL Monocytes # 0.8 (0-1.0) k/uL Eosinophils # 0.2 (0-0.7) k/uL Basophils # 0.1 (0-0.2) k/uL Sodium 138 (137-145) mmol/L Potassium 4.3 (3.5-5.1) mmol/L Chloride 108 H (98-107) mmol/L Carbon Dioxide 23 (22-30) mmol/L Anion Gap 7 mmol/L BUN 28 H (9-20) mg/dL Creatinine 1.22 (0.66-1.25) mg/dL Est GFR (CKD-EPI)AfAm 77 (>60 ml/min/1.73 sqM) Est GFR (CKD-EPI)NonAf 67 (>60 ml/min/1.73 sqM) Glucose 96 (74-99) mg/dL Plasma Lactic Acid Abe[place] 1.2 (0.7-2.0) mmol/L Calcium 9.2 (8.4-10.2) mg/dL Total Bilirubin 0.5 (0.2-1.3) mg/dL AST 29 (17-59) U/L ALT 27 (21-72) U/L Alkaline Phosphatase 96 (38-126) U/L Total Protein 7.0 (6.3-8.2) g/dL Albumin 3.9 (3.5-5.0) g/dL Urine Color Urine Appearance (Clear) Urine pH (5.0-8.0) Ur Specific [place] (1.001-1.035) Urine Protein (Negative) Urine Glucose (UA) (Negative) Urine Ketones (Negative) Urine Blood (Negative) Urine Nitrite (Negative) Urine Bilirubin (Negative) Urine Urobilinogen (<2.0) mg/dL Ur Leukocyte Esterase (Negative) Urine RBC (0-5) /hpf Urine WBC (0-5) /hpf Urine Mucus (None) /hpf 02/07/19 Range/Units 21:44 WBC (3.8-10.6) k/uL RBC (4.30-5.90) m/uL Hgb (13.0-17.5) gm/dL Hct (39.0-53.0) % MCV (80.0-100.0) fL MCH (25.0-35.0) pg MCHC (31.0-37.0) g/dL RDW (11.5-15.5) % Plt Count (150-450) k/uL Neutrophils % % Lymphocytes % % Monocytes % % Eosinophils % % Basophils % % Neutrophils # (1.3-7.7) k/uL Lymphocytes # (1.0-4.8) k/uL Monocytes # (0-1.0) k/uL Eosinophils # (0-0.7) k/uL Basophils # (0-0.2) k/uL Sodium (137-145) mmol/L Potassium (3.5-5.1) mmol/L Chloride (98-107) mmol/L Carbon Dioxide (22-30) mmol/L Anion Gap mmol/L BUN (9-20) mg/dL Creatinine (0.66-1.25) mg/dL Est GFR (CKD-EPI)AfAm (>60 ml/min/1.73 sqM) Est GFR (CKD-EPI)NonAf (>60 ml/min/1.73 sqM) Glucose (74-99) mg/dL Plasma Lactic Acid [place] (0.7-2.0) mmol/L Calcium (8.4-10.2) mg/dL Total Bilirubin (0.2-1.3) mg/dL AST (17-59) U/L ALT (21-72) U/L Alkaline Phosphatase (38-126) U/L Total Protein (6.3-8.2) g/dL Albumin (3.5-5.0) g/dL Urine Color Yellow Urine Appearance Cloudy (Clear) Urine pH 5.5 (5.0-8.0) Ur Specific [place] 1.045 H (1.001-1.035) Urine Protein 1+ H (Negative) Urine Glucose (UA) Negative (Negative) Urine Ketones Trace H (Negative) Urine Blood Negative (Negative) Urine Nitrite Negative (Negative) Urine Bilirubin Negative (Negative) Urine Urobilinogen 4.0 (<2.0) mg/dL Ur Leukocyte Esterase Large H (Negative) Urine RBC 5 (0-5) /hpf Urine WBC 143 H (0-5) /hpf Urine Mucus Many H (None) /hpf Disposition Clinical Impression: UTI (urinary tract infection), Testicular pain, Inguinal hernia Disposition: HOME SELF-CARE Condition: Good Prescriptions: Levofloxacin [Levaquin] 500 mg PO DAILY 9 Days #9 tab Is patient prescribed a controlled substance at d/c from ED?: No Referrals: Elizabeth Keith DO [Primary Care Provider] - 1-2 days
[2019-02-07 20:35] LABS: Basophils # (A) 0.1 k/uL (0-0.2); Basophils % (A) 1 %; Eosinophils # (A) 0.2 k/uL (0-0.7); Eosinophils % (A) 1 %; HCT 41.5 % (39.0-53.0); Lymphocytes # (A) 5.7 k/uL (1.0-4.8); MCHC 33.7 g/dL (31.0-37.0); MCV 91.9 fL (80.0-100.0); Mean Platelet Volume 6.9; Monocytes # (A) 0.8 k/uL (0-1.0); Neutrophils # (A) 8.1 k/uL (1.3-7.7); Neutrophils % (A) 54 %; Platelet Count 225 k/uL (150-450); RBC 4.51 m/uL (4.30-5.90); RDW 14.7 % (11.5-15.5); WBC 15.2 k/uL (3.8-10.6)
[2019-02-07 20:43] LABS: Lymphocytes % (A) 38 %; Monocytes % (A) 5 %
[2019-02-07 20:57] LABS: Albumin 3.9 g/dL (3.5-5.0); Calcium 9.2 mg/dL (8.4-10.2); Total Bilirubin 0.5 mg/dL (0.2-1.3)
[2019-02-07 20:59] LABS: Potassium 4.3 mmol/L (3.5-5.1)
[2019-02-07 21:59] LABS: Appearance,Urine Cloudy (Clear); Bilirubin,Urine Negative (Negative); Blood,Urine Negative (Negative); Color,Urine Yellow; Glucose,Urine (UA) Negative (Negative); Ketones,Urine Trace (Negative); Leukocyte Esterase,Urine Large (Negative); Mucus,Urine Many /hpf; Nitrite,Urine Negative (Negative); PH, Urine 5.5 (5.0-8.0); Protein,Urine 1+ (Negative); RBC,Urine 5 /hpf (0-5); Specific Gravity,Urine 1.045 (1.001-1.035); WBC,Urine 143 /hpf (0-5)
--- NOTE | 2019-02-07 22:40 | CT ---
EXAM: CT Abdomen and Pelvis With Intravenous Contrast CLINICAL HISTORY: ITS.REASON CT Reason: Pain TECHNIQUE: Axial computed tomography images of the abdomen and pelvis with intravenous contrast. CTDI is 13.6 mGy and DLP is 1113mGy-cm. This CT exam was performed using one or more of the following dose reduction techniques: automated exposure control, adjustment of the mA and/or kV according to patient size, and/or use of iterative reconstruction technique. COMPARISON: No relevant prior studies available. FINDINGS: Lung bases: Unremarkable. No mass. No consolidation. ABDOMEN: Liver: Unremarkable. No mass. Gallbladder and bile ducts: Small gallstone within the gallbladder. No CT evidence of acute inflammation. No ductal dilation. Pancreas: Unremarkable. No mass. No ductal dilation. Spleen: Unremarkable. No splenomegaly. Adrenals: Unremarkable. No mass. Kidneys and ureters: Unremarkable. No solid mass. No hydronephrosis. Stomach and bowel: Unremarkable. No obstruction. No mucosal thickening. PELVIS: Appendix: Prior appendectomy. Bladder: Unremarkable. No mass. Reproductive: Unremarkable as visualized. ABDOMEN and PELVIS: Intraperitoneal space: Unremarkable. No free air. No significant fluid collection. Bones/joints: No acute fracture. No dislocation. Degenerative disc disease in the lower lumbar spine. Subchondral sclerosis and severe disc height loss at L5-S1 level. Soft tissues: Small fat-containing right inguinal hernia. Vasculature: Unremarkable. No abdominal aortic aneurysm. Lymph nodes: Unremarkable. No enlarged lymph nodes. IMPRESSION: No acute findings. Cholelithiasis. Small fat-containing right inguinal hernia.
--- NOTE | 2019-02-08 00:11 | US ---
EXAM: US Scrotum CLINICAL HISTORY: ITS.REASON US Reason: Pain TECHNIQUE: Real-time ultrasound of the scrotum with color Doppler and image documentation. COMPARISON: No relevant prior studies available. FINDINGS: Right testicle: The right testicle measures 4.8 x 2.8 x 3.5 cm. Testicular flow visualized. Left testicle: The left testicle measures 4.3 x 2.4 x 3.6 cm. Testicular flow visualized. Epididymides: Prominent right epididymis. A 1.1 cm right epididymal cystic structure. Scrotum: Small right hydrocele. IMPRESSION: 1. Bilateral testicular flow visualized. 2. Slightly larger right testicle and prominent right epididymis. Small right epididymal cystic structure. 3. Small right hydrocele.
[2019-02-08 00:23] VITALS: BP 98/57; PULSE 67; RESP 14; TEMP 97.6
[2019-02-08] MEDS ORDERED: LEVOFLOXACIN 500 MG TAB PO STA (00:24)
[2019-02-08] MEDS ORDERED: cefTRIAXone IN SWFI 1,000 MG/10 ML SYRINGE IVP STA (00:24)
== END 2019-02-08 00:48 | disposition home or self-care (01) ==
LOC: EC 19:35
DX: N50.82 Scrotal pain (principal); N39.0 Urinary tract infection, site not specified; K40.90 Unilateral inguinal hernia, without obstruction or gangrene, not specified as recurrent; I25.119 Atherosclerotic heart disease of native coronary artery with unspecified angina pectoris; I25.2 Old myocardial infarction; K21.9 Gastro-esophageal reflux disease without esophagitis; E78.5 Hyperlipidemia, unspecified; F41.9 Anxiety disorder, unspecified; F17.200 Nicotine dependence, unspecified, uncomplicated; Z79.82 Long term (current) use of aspirin; Z79.899 Other long term (current) drug therapy; Z95.5 Presence of coronary angioplasty implant and graft; Z90.89 Acquired absence of other organs; Z90.49 Acquired absence of other specified parts of digestive tract
CPT/HCPCS: 36415; 80053; 83605; 85025; 81001; 93975; 76870; 74177; 99284; 96374; 96375 ×3; 96376; J2405; J1885; J2270; Q9967

== ENCOUNTER 2019-05-01 18:23 | Emergency (ER) | payer BC ==
[2019-05-01 18:33] VITALS: BP 113/72; PULSE 79; RESP 16; TEMP 98.1
[2019-05-01] MEDS ORDERED: Acetaminophen-Codeine 300-30mg TAB PO STA (18:38)
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
--- NOTE | 2019-05-01 19:31 | XR ---
EXAMINATION TYPE: XR foot complete RT DATE OF EXAM: 05/01/2019 COMPARISON: NONE HISTORY: Pain. Injury. TECHNIQUE: 3 views FINDINGS: Metatarsals appear intact. I see no fracture nor dislocation. There are no erosions. IMPRESSION: Negative right foot exam.
--- NOTE | 2019-05-01 19:32 | XR ---
EXAMINATION TYPE: XR ankle complete RT DATE OF EXAM: 05/01/2019 COMPARISON: NONE HISTORY: Pain TECHNIQUE: 3 views FINDINGS: There is nondisplaced oblique fracture of the distal fibula. Ankle mortise is anatomic. The re is soft tissue swelling around the ankle joint. IMPRESSION: Acute fracture of the lateral malleolus.
[2019-05-01] MEDS ORDERED: ACET/COD 300 MG/30 MG STARTER PACK 6 TAB BTL PO STA (19:59)
[2019-05-01] MEDS ORDERED: KETOROLAC 60 MG/2 ML VIAL IM STA (19:59)
== END 2019-05-01 20:21 | disposition home or self-care (01) ==
LOC: EC 18:23
DX: S82.61XA Displaced fracture of lateral malleolus of right fibula, initial encounter for closed fracture (principal); I25.10 Atherosclerotic heart disease of native coronary artery without angina pectoris; K21.9 Gastro-esophageal reflux disease without esophagitis; E78.5 Hyperlipidemia, unspecified; I25.2 Old myocardial infarction; G25.81 Restless legs syndrome; F41.9 Anxiety disorder, unspecified; F17.200 Nicotine dependence, unspecified, uncomplicated; Z95.5 Presence of coronary angioplasty implant and graft; Z79.82 Long term (current) use of aspirin; Z79.899 Other long term (current) drug therapy; V28.4XXA Motorcycle driver injured in noncollision transport accident in traffic accident, initial encounter; Y92.89 Other specified places as the place of occurrence of the external cause
CPT/HCPCS: 73610; 73630; 99284; 29515; 96372; J1885

== ENCOUNTER 2019-10-31 04:46 | Observation (INO) | payer BC ==
--- NOTE | 2019-10-31 05:27 | XR ---
EXAMINATION TYPE: XR chest 2V DATE OF EXAM: 10/31/2019 COMPARISON: 09/17/2017 HISTORY: Cough TECHNIQUE: FINDINGS: There is no heart failure nor confluent pneumonic infiltrate. Costophrenic angles are clear . There are chest leads. The bony thorax is intact. There is no pleural effusion. IMPRESSION: No active cardiopulmonary disease. No adverse change compared to old exam. There is clear ing of some mild interstitial density in the left lung compared to old exam.
[2019-10-31 05:31] LABS: ALT 26 U/L (4-49); AST 38 U/L (17-59); African American GFR (CKD) >90 (>60 ml/min/1.73 sqM); Albumin 3.6 g/dL (3.5-5.0); Alkaline Phosphatase 94 U/L (38-126); Anion Gap 7 mmol/L; Blood Urea Nitrogen 27 mg/dL (9-20); Calcium 8.8 mg/dL (8.4-10.2); Carbon Dioxide 19 mmol/L (22-30); Chloride 110 mmol/L (98-107); Glucose 106 mg/dL (74-99); Magnesium 2.2 mg/dL (1.6-2.3); Non-African American GFR(CKD) >90 (>60 ml/min/1.73 sqM); Sodium 136 mmol/L (137-145); Total Bilirubin 0.7 mg/dL (0.2-1.3)
[2019-10-31 05:32] LABS: Potassium 5.2 mmol/L (3.5-5.1)
[2019-10-31 05:40] LABS: Partial Thromboplastin Time 22.9 sec (22.0-30.0); Prothrombin Time 10.5 sec (9.0-12.0)
[2019-10-31 05:53] LABS: Basophils # (A) 0.2 k/uL (0-0.2); Basophils % (A) 2 %; Eosinophils # (A) 0.1 k/uL (0-0.7); Eosinophils % (A) 1 %; HCT 40.9 % (39.0-53.0); HGB 13.8 gm/dL (13.0-17.5); Lymphocytes # (A) 7.3 k/uL (1.0-4.8); Lymphocytes % (A) 51 %; MCH 31.3 pg (25.0-35.0); MCHC 33.9 g/dL (31.0-37.0); MCV 92.5 fL (80.0-100.0); Mean Platelet Volume 8.1; Monocytes # (A) 0.7 k/uL (0-1.0); Monocytes % (A) 5 %; Neutrophils # (A) 5.5 k/uL (1.3-7.7); Neutrophils % (A) 39 %; Platelet Count 231 k/uL (150-450); RBC 4.42 m/uL (4.30-5.90); RDW 13.4 % (11.5-15.5); WBC 14.1 k/uL (3.8-10.6)
[2019-10-31] MEDS ORDERED: ASPIRIN 81 MG PO STA (05:59)
--- NOTE | 2019-10-31 05:59 | ED ---
Chest Pain HPI - General Chief Complaint: Chest Pain Stated Complaint: Chest Pain Time Seen by Provider: 10/31/19 04:54 Source: patient Mode of arrival: wheelchair Limitations: no limitations - History of Present Illness Initial Comments: Hitesh is a 53yo male with a known history of coronary artery disease, pretension, hyperlipidemia presents to the ER today for evaluation of chest pain. Patient reports that a couple days ago he did have some exertional chest pain but went away so he didn't seek care. Patient states that tonight he was sleeping when he woke with some retrosternal chest pressure similar to previous cardiac events and what he describes as heartburn. Patient reports this reminded him of previous heart attack psychiatric the ER for evaluation. Patient denies any palpitations shortness of breath or diaphoresis. Has resolved upon evaluation is only approximately 2 out of 10 in intensity. - Related Data Home Medications Medication Instructions Recorded Confirmed ALPRAZolam 0.25 mg PO BID PRN 08/25/14 02/05/19 Aspirin 162 mg PO HS 08/25/14 02/05/19 [id number] 2 tab PO HS PRN 08/25/14 02/05/19 [Excedrin] Atorvastatin [Lipitor] 80 mg PO HS 08/25/14 02/05/19 Metoprolol Tartrate [Lopressor] 25 mg PO HS 08/25/14 02/05/19 Naproxen [Naprosyn] 500 mg PO BID PRN 08/25/14 02/05/19 Omeprazole 20 mg PO HS 08/25/14 02/05/19 Citalopram Hydrobromide [CeleXA] 40 mg PO HS 09/27/16 02/05/19 Lisinopril [Zestril] 20 mg PO HS 09/27/16 02/05/19 Nitroglycerin Sl Tabs [Nitrostat] 0.4 mg SUBLINGUAL Q5M PRN 09/27/16 02/05/19 Pramipexole [Mirapex] 0.25 mg PO HS 09/27/16 02/05/19 Previous Rx's Medication Instructions Recorded Ipratropium-Albuterol Nebulize 3 ml INHALATION Q4H PRN #30 neb 09/17/17 [Duoneb 0.5 mg-3 mg/3 ml Soln] Promethaz-Cod 6.25-10 mg/5 ml 5 ml PO Q6HR PRN #100 ml 09/17/17 [Phenergan with Codeine] predniSONE 50 mg PO DAILY #5 tablet 09/17/17 Acetaminophen Tab [Tylenol Tab] 1,000 mg PO Q8H #30 tablet 02/05/19 Ibuprofen [Motrin] 800 mg PO Q8H #30 tab 02/05/19 Levofloxacin [Levaquin] 500 mg PO DAILY 9 Days #9 tab 02/08/19 Allergies Allergy/AdvReac Type Severity Reaction Status Date / Time No Known Allergies Allergy Verified 10/31/19 05:03 Review of Systems ROS Statement: Those systems with pertinent positive or pertinent negative responses have been documented in the HPI. ROS Other: All systems not noted in ROS Statement are negative. EKG Findings - EKG Comments: EKG Findings:: EKG was obtained due to complaint chest pain, EKG was obtained at 4:57 AM, rate is 63 rhythm is sinus there is a normal axis, there are normal intervals, W[place] 144, QRS 84, QTC is 4:15 there are no acute ST elevations or depressions there is no evidence of acute ischemia or infarction. Past Medical History Past Medical History: Coronary Artery Disease (CAD), Chest Pain / Angina, GERD/Reflux, Hyperlipidemia, Myocardial Infarction ([place]), Pneumonia, Vascular Disorder Additional Past Medical History / Comment(s): Restless leg syndrome, migraines, PAD, [place] x2, back pain, peptic ulcer dx, nephrolithiasis, bronchitis, sinus problems. Last Myocardial Infarction Date:: 2013 History of Any Multi-Drug Resistant Organisms: None Reported Past Surgical History: Appendectomy, Back Surgery, Cholecystectomy, Heart Catheterization With Stent, Hernia Repair Additional Past Surgical History / Comment(s): Surgery for ruptured disc lower back. Has 3 heart stents. Past Anesthesia/Blood Transfusion Reactions: Previous Problems w/ Anesthesia Additional Past Anesthesia/Blood Transfusion Reaction / Comment(s): Has some anxiety, thai. with spinal anesthesia. Date of Last Stent Placement:: 2013 Past Psychological History: Anxiety Smoking Status: Current every day smoker Past Alcohol Use History: None Reported Past Drug Use History: None Reported - Past Family History Mother Family Medical History: Cancer Additional Family Medical History / Comment(s): Mother in her 60's from leukemia Father Family Medical History: Cancer, COPD Additional Family Medical History / Comment(s): Skin cancer. Father at the age of 73 yrs from burn injuries. General Exam - General Exam Comments Initial Comments: Physical Exam GENERAL: Patient is well-developed and well-nourished. Patient is nontoxic and well- hydrated and is in no distress. HENT: Normocephalic, Atraumatic. EYES: PERRL, EOMI PULMONARY: Unlabored respirations. No audible rales rhonchi or wheezing was noted. CARDIOVASCULAR: There is a regular rate and rhythm without any murmurs gallops or rubs. ABDOMEN: Soft and nontender with normal bowel sounds. SKIN: Skin is clear with no lesions or rashes and otherwise unremarkable. : Deferred NEUROLOGIC: Patient is alert and oriented x3. Moving all extremities spontaneously MUSCULOSKELETAL: Normal extremities with adequate strength and full range of motion. No lower extremity swelling or edema. No calf tenderness. PSYCHIATRIC: Normal psychiatric evaluation. 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 Is not on any antiplatelet or anticoagulant medications. Patient presents with complaint of chest pain that woke him from sleep, patient was also suffering from exertional chest pain earlier in the week. The symptoms are concerning for ischemic etiology. EKG is nonischemic. EKG was compared to previous from his priors no significant change in morphology. Initial labs were unremarkable troponin not elevated however given the patient's risk factors we'll plan to admit for further evaluation. Cardiology was consulted. Disposition Clinical Impression: Chest pain Disposition: ADMITTED IP TO THIS HOSP Condition: Stable Referrals: Elizabeth Keith DO [Primary Care Provider] - 1-2 days
[2019-10-31] MEDS ORDERED: NITROGLYCERIN SL TABS 0.4 MG TAB SUBLINGUAL PRN (06:39)
[2019-10-31] MEDS: METOPROLOL TARTRATE 25 MG TAB PO SCH ×2 (08:38→09:21)
[2019-10-31] MEDS: ATORVASTATIN 80 MG TAB PO SCH ×2 (08:38→09:21)
[2019-10-31] MEDS: LISINOPRIL 5 MG TAB PO SCH ×2 (08:38→09:21)
[2019-10-31] MEDS ORDERED: NICOTINE 21MG/24HR PATCH TRANSDERM SCH (09:00)
[2019-10-31] MEDS ORDERED: ALPRAZolam 0.25 MG TAB PO PRN (10:47)
--- NOTE | 2019-10-31 11:30 | CONS ---
BAN Proctor is a 53-year-old gentleman with history of coronary artery disease, status post prior multivessel angioplasty, hypertension, and dyslipidemia who presented to hospital with chest pain. He describes it as a precordial chest discomfort that woke him up from sleep, sharp, midsternal without any radiation to neck, arm or back. At the time of my evaluation, he is pain free, hemodynamically stable and in no apparent distress. He stated to the ER doctor that his pain was similar to the pain that he had during his prior event. The patient had similar chest pains in 2017 and underwent cardiac catheterization that revealed patent stents within the right coronary artery, circumflex coronary artery and LAD. EKG shows sinus rhythm, normal axis, normal intervals. LABS: Labs show that the troponin is negative. PAST MEDICAL HISTORY: Significant for coronary artery disease status post multivessel angioplasty, hypertension. MEDICATIONS: Medications at home included: Zestril 5 mg daily, Tylenol, aspirin, Celexa, Lipitor Lopressor. ALLERGIES: There are no known drug allergies. FAMILY HISTORY: Negative for premature coronary artery disease. SOCIAL HISTORY: Significant for smoking. There is no history of EtOH abuse or drug abuse. REVIEW OF SYSTEMS: HEENT is unremarkable. CARDIAC as described above. RESPIRATORY negative. GI negative. : Negative. ALLERGY/IMMUNOLOGY: None. SKIN negative. MUSCULOSKELETAL: Negative. ENDOCRINE: Negative. DERM negative. CONSTITUTIONAL negative. ONCOLOGICAL negative. FOOD SANITARIAN: Negative. Rest of the system review is not relevant. EXAM: Comfortable at rest. Vital signs are stable. There is no jugular venous distention. Carotid upstroke is normal. There is no bruit. Chest exam reveals good air entry bilaterally. Heart exam reveals first and second heart sounds. No gallop. No murmur. No rub. Abdomen is soft, nontender. Exam of extremities did not reveal any edema. Peripheral pulses are felt. LABORATORY DATA: Labs show that the hemoglobin is normal at 13.8, platelet count is 230, creatinine is 0.9. ASSESSMENT: 1. Precordial chest pain. 2. Coronary artery disease, status post multivessel angioplasty. PLAN: I talked to patient about his symptoms, treatment options. We will obtain serial troponins and consider doing a stress test on him tomorrow. He has seen Dr. Chairez 3 years ago and has not been seen since. If the stress test is abnormal, we will do a cardiac catheterization on him. MMODL / IJN: [id number] /
--- NOTE | 2019-10-31 13:48 | P.HPIM ---
History of Present Illness H&P Date: 10/31/19 Chief Complaint: Chest pain Hitesh is a 53yo male with a known history of coronary artery disease, pretension, hyperlipidemia presents to the ER today for evaluation of chest pain. Patient reports that a couple days ago he did have some exertional chest pain but went away so he didn't seek care. Patient states that tonight he was sleeping when he woke with some retrosternal chest pressure similar to previous cardiac events and what he describes as heartburn. Patient reports this reminded him of previous heart attack psychiatric the ER for evaluation. Patient denies any palpitations shortness of breath or diaphoresis. Has resolved upon evaluation is only approximately 2 out of 10 in intensity. Workup in ED including an EKG and first set of troponin was unremarkable; patient is admitted to the hospital for further cardiac evaluation Review of Systems REVIEW OF SYSTEMS: CONSTITUTIONAL: No fever, no malaise, no fatigue. HEENT: No recent visual problems or hearing problems. Denied any sore throat. CARDIOVASCULAR: No chest pain, orthopnea, PND, no palpitations, no syncope. PULMONARY: No shortness of breath, no cough, no hemoptysis. GASTROINTESTINAL: No diarrhea, no nausea, no vomiting, no abdominal pain. NEUROLOGICAL: No headaches, no weakness, no numbness. HEMATOLOGICAL: Denies any bleeding or petechiae. GENITOURINARY: Denies any burning micturition, frequency, or urgency. MUSCULOSKELETAL/RHEUMATOLOGICAL: Denies any joint pain, swelling, or any muscle pain. ENDOCRINE: Denies any polyuria or polydipsia. The rest of the 14-point review of systems is negative. Past Medical History Past Medical History: Coronary Artery Disease (CAD), Chest Pain / Angina, GERD/Reflux, Hyperlipidemia, Myocardial Infarction ([place]), Pneumonia, Vascular Disorder Additional Past Medical History / Comment(s): Restless leg syndrome, migraines, PAD, [place] x2, back pain, peptic ulcer dx, nephrolithiasis, bronchitis, sinus problems. Last Myocardial Infarction Date:: 2013 History of Any Multi-Drug Resistant Organisms: None Reported Past Surgical History: Appendectomy, Back Surgery, Cholecystectomy, Heart Catheterization With Stent, Hernia Repair Additional Past Surgical History / Comment(s): Surgery for ruptured disc lower back. Has 3 heart stents. Past Anesthesia/Blood Transfusion Reactions: Previous Problems w/ Anesthesia Additional Past Anesthesia/Blood Transfusion Reaction / Comment(s): Has some anxiety, thai. with spinal anesthesia. Date of Last Stent Placement:: 2013 Past Psychological History: Anxiety Additional Psychological History / Comment(s): Pt resides with his spouse and 3 adult children. He is independent. He drives. He is a clamp truck driver. Smoking Status: Current every day smoker Past Alcohol Use History: None Reported Additional Past Alcohol Use History / Comment(s): Smokes 2 PPD. Started smoking in 1987. Past Drug Use History: None Reported - Past Family History Mother Family Medical History: Cancer Additional Family Medical History / Comment(s): Mother in her 60's from leukemia Father Family Medical History: Cancer, COPD Additional Family Medical History / Comment(s): Skin cancer. Father at the age of 73 yrs from burn injuries. Medications and Allergies Home Medications Medication Instructions Recorded Confirmed Type ALPRAZolam 0.25 mg PO BID PRN 08/25/14 10/31/19 History Aspirin 162 mg PO HS 08/25/14 10/31/19 History [id number] 2 tab PO HS PRN 08/25/14 10/31/19 History [Excedrin] Atorvastatin [Lipitor] 80 mg PO HS 08/25/14 10/31/19 History Metoprolol Tartrate [Lopressor] 25 mg PO HS 08/25/14 10/31/19 History Naproxen [Naprosyn] 500 mg PO BID PRN 08/25/14 10/31/19 History Omeprazole 40 mg PO HS 08/25/14 10/31/19 History Citalopram Hydrobromide [CeleXA] 40 mg PO HS 09/27/16 10/31/19 History Nitroglycerin Sl Tabs [Nitrostat] 0.4 mg SUBLINGUAL Q5M PRN 09/27/16 10/31/19 History Acetaminophen Tab [Tylenol Tab] 1,000 mg PO Q8H PRN 10/31/19 10/31/19 History Lisinopril [Zestril] 5 mg PO DAILY 10/31/19 10/31/19 History Multivitamins, Thera [Multivitamin 1 tab PO DAILY 10/31/19 10/31/19 History (formulary)] Pramipexole [Mirapex] 1.5 mg PO HS 10/31/19 10/31/19 History Allergies Allergy/AdvReac Type Severity Reaction Status Date / Time No Known Allergies Allergy Verified 10/31/19 08:12 Physical Exam Vitals: Vital Signs Temp Pulse Pulse Resp BP BP Pulse Ox 10/31/19 08:00 97.8 F 57 L 14 101/52 97 10/31/19 06:09 58 L 18 100/70 98 10/31/19 04:56 97.7 F 67 15 107/65 97 Intake and Output 10/30/19 10/31/19 10/31/19 22:59 06:59 14:59 Other: Voiding Method Toilet Weight 95.254 kg 95.254 kg - Constitutional General appearance: Present: average body habitus, cooperative, no acute distress - EENT Eyes: Present: anicteric sclerae, EOMI, PERRLA, normal appearance ENT: Present: hearing grossly normal, normal oropharynx Ears: bilateral: normal - Neck Neck: Present: normal ROM. Absent: lymphadenopathy, rigidity, thyromegaly Carotids: negative: bruit present Thyroid: bilateral: normal size, negative: enlarged, nodule - Respiratory Respiratory: bilateral: CTA, negative: rales, rhonchi, wheezing - Cardiovascular Rhythm: regular Heart sounds: normal: S1, S2 Abnormal Heart Sounds: Absent: systolic murmur, diastolic murmur - Gastrointestinal General gastrointestinal: Present: normal bowel sounds, soft. Absent: distended, organomegaly, tenderness - Genitourinary Genitourinary Comment(s): deferred - Integumentary Integumentary: Present: normal turgor. Absent: jaundiced, rash, ulcer - Neurologic Neurologic: Present: CNII-XII intact. Absent: focal deficits - Musculoskeletal Musculoskeletal: Present: gait normal, strength equal bilaterally - Psychiatric Psychiatric: Present: A&O x's 3, appropriate affect, intact judgment & insight Results CBC & Chem 7: 10/31/19 05:02 10/31/19 05:02 Labs: Abnormal Lab Results - Last 24 Hours (Table) 10/31/19 10/31/19 Range/Units 05:02 05:02 WBC 14.1 H (3.8-10.6) k/uL Lymphocytes # 7.3 H (1.0-4.8) k/uL Sodium 136 L (137-145) mmol/L Potassium 5.2 H (3.5-5.1) mmol/L Chloride 110 H (98-107) mmol/L Carbon Dioxide 19 L (22-30) mmol/L BUN 27 H (9-20) mg/dL Glucose 106 H (74-99) mg/dL Thrombosis Risk Factor Assmnt - Choose All That Apply Each Factor Represents 1 point: Age 41-60 years Thrombosis Risk Factor Assessment Total Risk Factor Score: 1 Thrombosis Risk Factor Assessment Level: Low Risk Assessment and Plan Assessment: 1. Chest pain rule out acute coronary syndrome; 2. Coronary artery disease; history of [place] in the past 3. Hypertension 4. Hyperlipidemia We will admit patient to cardiac telemetry; monitor EKG and trend troponin every 43; continue with aspirin, Lipitor, beta blockers and lisinopril; nitroglycerin sublingual when necessary; consult cardiology for further recommendations
[2019-10-31 14:11] VITALS: RESP 16
[2019-10-31 16:59] VITALS: BP 111/56; PULSE 74; TEMP 98.1
[2019-10-31] MEDS ORDERED: PANTOPRAZOLE 40 MG TABLET PO SCH (21:00)
[2019-10-31] MEDS ORDERED: PRAMIPEXOLE 0.5 MG TAB PO SCH (21:00)
[2019-10-31] MEDS ORDERED: CITALOPRAM HYDROBROMIDE 20 MG TAB PO SCH (21:00)
[2019-11-01] MEDS ORDERED: ASPIRIN 325 MG TAB PO SCH (09:00)
--- NOTE | 2019-11-14 16:40 | P.DS ---
Providers Date of admission: 10/31/19 06:41 Expected date of discharge: 10/31/19 Attending physician: Jose Daniel Ramirez Consults: 10/31/19 06:39 Consult Physician Urgent Consulting Provider: [facility] Consult Reason/Comments: chest pain hx CAD Do you want consulting provider notified?: Yes, Notify in am Primary care physician: [facility] Course: Hitesh is a 53yo male with a known history of coronary artery disease, pretension, hyperlipidemia presents to the ER today for evaluation of chest pain. Patient reports that a couple days ago he did have some exertional chest pain but went away so he didn't seek care. Patient states that tonight he was sleeping when he woke with some retrosternal chest pressure similar to previous cardiac events and what he describes as heartburn. Patient reports this reminded him of previous heart attack psychiatric the ER for evaluation. Patient denies any palpitations shortness of breath or diaphoresis. Has resolved upon evaluation is only approximately 2 out of 10 in intensity. Workup in ED including an EKG and first set of troponin was unremarkable; patient is admitted to the hospital for further cardiac evaluation patient remained stable while in the hospital; he was ruled out for acute coronary syndrome; cardiology saw patient and recommended stress test while inpatient or as an outpatient; patient opted for outpatient stress test and was discharged home in a stable condition Patient Condition at Discharge: Stable Plan - Discharge Summary Discharge Rx Participant: No New Discharge Prescriptions: Continue Omeprazole 40 mg PO HS ALPRAZolam 0.25 mg PO BID PRN PRN Reason: Anxiety Atorvastatin [Lipitor] 80 mg PO HS [id number] [phone] [Excedrin] 2 tab PO HS PRN PRN Reason: Migraine Headache Aspirin 162 mg PO HS Metoprolol Tartrate [Lopressor] 25 mg PO HS Naproxen [Naprosyn] 500 mg PO BID PRN PRN Reason: Pain Nitroglycerin Sl Tabs [Nitrostat] 0.4 mg SUBLINGUAL Q5M PRN PRN Reason: Chest Pain Citalopram Hydrobromide [CeleXA] 40 mg PO HS Acetaminophen Tab [Tylenol] 1,000 mg PO Q8H PRN PRN Reason: Pain Lisinopril [Zestril] 5 mg PO DAILY Multivitamins, Thera [Multivitamin (formulary)] 1 tab PO DAILY Pramipexole [Mirapex] 1.5 mg PO HS Discharge Medication List ALPRAZolam 0.25 mg PO BID PRN 08/25/14 [History] Aspirin 162 mg PO HS 08/25/14 [History] [id number] [Excedrin] 2 tab PO HS PRN 08/25/14 [History] Atorvastatin [Lipitor] 80 mg PO HS 08/25/14 [History] Metoprolol Tartrate [Lopressor] 25 mg PO HS 08/25/14 [History] Naproxen [Naprosyn] 500 mg PO BID PRN 08/25/14 [History] Omeprazole 40 mg PO HS 08/25/14 [History] Citalopram Hydrobromide [CeleXA] 40 mg PO HS 09/27/16 [History] Nitroglycerin Sl Tabs [Nitrostat] 0.4 mg SUBLINGUAL Q5M PRN 09/27/16 [History] Acetaminophen Tab [Tylenol] 1,000 mg PO Q8H PRN 10/31/19 [History] Lisinopril [Zestril] 5 mg PO DAILY 10/31/19 [History] Multivitamins, Thera [Multivitamin (formulary)] 1 tab PO DAILY 10/31/19 [History] Pramipexole [Mirapex] 1.5 mg PO HS 10/31/19 [History] Follow up Appointment(s)/Referral(s): Bobby Chairez MD [STAFF PHYSICIAN] - 1 Week Elizabeth Keith DO [Primary Care Provider] - 1-2 days Discharge Disposition: HOME SELF-CARE
== END 2019-10-31 17:42 | disposition home or self-care (01) ==
LOC: EC 04:46 → 1SOBS 06:41
PROVIDERS: ADMIT Family Medicine; ATTEND Family Medicine
DX: R07.89 Other chest pain (principal); I25.10 Atherosclerotic heart disease of native coronary artery without angina pectoris; E78.5 Hyperlipidemia, unspecified; F17.200 Nicotine dependence, unspecified, uncomplicated; F41.9 Anxiety disorder, unspecified; I25.2 Old myocardial infarction; K21.9 Gastro-esophageal reflux disease without esophagitis; I20.9 Angina pectoris, unspecified; Z87.442 Personal history of urinary calculi; Z87.11 Personal history of peptic ulcer disease; G25.81 Restless legs syndrome; M54.9 Dorsalgia, unspecified; I99.9 Unspecified disorder of circulatory system; G43.909 Migraine, unspecified, not intractable, without status migrainosus; Z87.01 Personal history of pneumonia (recurrent); Z95.5 Presence of coronary angioplasty implant and graft; Z79.82 Long term (current) use of aspirin; Z79.899 Other long term (current) drug therapy; Z80.6 Family history of leukemia; Z82.5 Family history of asthma and other chronic lower respiratory diseases; Z80.8 Family history of malignant neoplasm of other organs or systems
CPT/HCPCS: 99285; 36415; 93005; 83880; 80053; 83690; 83735; 84484; 85025; 85610; 85730; 71046; G0378; S4990

== ENCOUNTER → 2021-01-08 | Outpatient (CLI) | payer BC ==
--- NOTE | 2021-01-08 15:25 | XR ---
EXAMINATION TYPE: XR chest 2V DATE OF EXAM: 01/08/2021 COMPARISON: Chest x-ray October 31, 2019 HISTORY: Hypertension, abnormal lab values. TECHNIQUE: Frontal and lateral views of the chest are obtained. FINDINGS: There is no suspicious new focal air space opacity, pleural effusion, or pneumothorax seen . Some reticular increased markings in the lower lungs bilaterally. The cardiac silhouette size is s table and within normal limits. The osseous structures are intact. Cholecystectomy clips noted on l ateral view. IMPRESSION: Possible mild new lower lung interstitial edema. No new focal infiltrate.
== END | disposition home or self-care (01) ==
LOC: RADXRMAIN 15:03
PROVIDERS: ATTEND Internal Medicine Hematology & Oncology
DX: I10 Essential (primary) hypertension (principal)
CPT/HCPCS: 71046